=== PATIENT | female | born 1990 | race Caucasian/White ===

== ENCOUNTER 2017-04-22 09:18 | Emergency (ER) | payer OTHER ==
[2017-04-22 09:31] VITALS: RESP 16; O2SAT 100
[2017-04-22] MEDS ORDERED: Oxycodone/Acetaminophen 5/325 mg Tab PO STA (10:33)
--- NOTE | 2017-04-22 10:38 | ED PDOC ---
Upper Extremity Pain/Injury Time Seen by Provider: 04/22/17 10:15 Chief Complaint (Nursing): Trauma Chief Complaint (Provider): Trauma History Per: Patient History/Exam Limitations: no limitations Onset/Duration Of Symptoms: Mins Additional Complaint(s): 27 year old female presents to the emergency department with a complaint of a right knee injury after she fell on ice prior to arrival. Patient states she fell directly on the left knee but then saw her right knee twist. Of note, patient had fell on her right knee years ago with ruptured ligaments that took very long to heal and is now concerned that she might have injured the knee the same way. Denies fever or chills. Past Medical History Reviewed: Historical Data, Nursing Documentation, Vital Signs Vital Signs: Last Vital Signs Temp 97 F L 04/22/17 09:26 Pulse 73 04/22/17 09:26 Resp 16 04/22/17 09:26 BP 108/74 04/22/17 09:26 Pulse Ox 100 04/22/17 09:26 - Medical History PMH: No Chronic Diseases - Immunization History Hx Tetanus Toxoid Vaccination: No Hx Influenza Vaccination: No Hx Pneumococcal Vaccination: No - Allergies Allergies/Adverse Reactions: Allergies Allergy/AdvReac Type Severity Reaction Status Date / Time No Known Allergies Allergy Verified 04/22/17 10:32 Review of Systems ROS Statement: Except As Marked, All Systems Reviewed And Found Negative (As per HPI, otherwise negative) Constitutional: Negative for: Fever, Chills Musculoskeletal: Positive for: Other (Right knee pain) Physical Exam - Reviewed Nursing Documentation Reviewed: Yes Vital Signs Reviewed: Yes - Physical Exam Appears: Positive for: No Acute Distress Head Exam: Positive for: NORMAL INSPECTION Skin: Positive for: Normal Color, Warm, Dry Extremity: Positive for: Normal ROM (Unable to fully extend the knee secondary to pain with some edema. ), Tenderness (Anterior knee), Other (+2 DP pulses with sensation intact). Negative for: Deformity (No obvious bony deformity) Neurologic/Psych: Positive for: Alert, Oriented (x3) - ECG O2 Sat by Pulse Oximetry: 100 (RA) Pulse Ox Interpretation: Normal Medical Decision Making Medical Decision Making: Time: 1033 Initial Impression: Right knee pain s/p fall Initial Plan: Urine Preg Percocet 5/325 mg PO Right knee x-ray Reevaluation Scribe Attestation: Documented by Liz Orozco, acting as a scribe for Denisse Alexandre MD. Provider Scribe Attestation: All medical record entries made by the Scribe were at my direction and personally dictated by me. I have reviewed the chart and agree that the record accurately reflects my personal performance of the history, physical exam, medical decision making, and the department course for this patient. I have also personally directed, reviewed, and agree with the discharge instructions and disposition. Disposition - Disposition
--- NOTE | 2017-04-22 10:44 | ED PDOC ---
Lower Extremity Pain/Injury Time Seen by Provider: 04/22/17 10:15 Chief Complaint (Nursing): Trauma Chief Complaint (Provider): Trauma History Per: Patient Onset/Duration Of Symptoms: Hrs Additional Complaint(s): 27 year old female presents to the emergency department with a complaint of a right knee injury after she fell on ice prior to arrival. Patient states she fell directly on the left knee but then saw her right knee twist. Of note, patient had fell on her right knee years ago with ruptured ligaments that took very long to heal and is now concerned that she might have injured the knee the same way. Denies fever or chills. Past Medical History Vital Signs: Last Vital Signs Temp 97 F L 04/22/17 09:26 Pulse 73 04/22/17 09:26 Resp 16 04/22/17 09:26 BP 108/74 04/22/17 09:26 Pulse Ox 100 04/22/17 09:26 - Family History Family History: States: Unknown Family Hx - Immunization History Hx Tetanus Toxoid Vaccination: No Hx Influenza Vaccination: No Hx Pneumococcal Vaccination: No - Home Medications Home Medications: Ambulatory Orders Medication Instructions Recorded oxyCODONE/Acetaminophen [Percocet 1 tab PO Q6 PRN #20 tab 04/22/17 5/325 mg Tab] - Allergies Allergies/Adverse Reactions: Allergies Allergy/AdvReac Type Severity Reaction Status Date / Time No Known Allergies Allergy Verified 04/22/17 10:32 Review of Systems ROS Statement: Except As Marked, All Systems Reviewed And Found Negative (As per HPI, otherwise negative) Constitutional: Negative for: Fever, Chills Musculoskeletal: Positive for: Other (Rigth knee pain) Physical Exam - Reviewed Nursing Documentation Reviewed: Yes Vital Signs Reviewed: Yes - Physical Exam Appears: Positive for: No Acute Distress Head Exam: Positive for: NORMAL INSPECTION Skin: Positive for: Normal Color, Warm, Dry Extremity: Positive for: Normal ROM (Unable to fully extend the knee secondary to pain with some edema), Tenderness (Anterior knee), Other (+2 DP pulses with sensation intact). Negative for: Deformity (No obvious bony deformity noted) Neurologic/Psych: Positive for: Alert, Oriented (x3) - ECG O2 Sat by Pulse Oximetry: 100 (RA) Pulse Ox Interpretation: Normal Medical Decision Making Medical Decision Making: Time: 1033 Initial Impression: Right knee pain s/p fall Initial Plan: Urine Preg Percocet 5/325 mg PO Right knee x-ray Reevaluation Time: 1057 Knee MRI w/o contrast Time: 1230 --knee x-ray FINDINGS: BONES: No acute fracture. JOINTS: Unremarkable. JOINT EFFUSION: None. OTHER FINDINGS: None. IMPRESSION: No demonstrated fracture or dislocation. Accession No. : [id number] Patient Name / ID : GEORGINA STRAUSS / [id number] Exam Date : 04/22/2017 12:23:37 ( Approved ) Study Comment : Sex / Age : F / 27Y Creator : Toy Chung MD Dictator : Toy Chung MD Animal Nutritionist : Property Staff Accountant : Toy Chung MD Approver2 : Report Date : 04/22/2017 15:02:43 My Comment : MRI right knee History: Knee pain. Comparison: None available. Technique: Multi-echo multiplanar sequences were performed through the right knee without the use of intravenous contrast. Findings: Nonvisualization of the anterior cruciate ligament at its expected location in the intercondylar notch suggestive for a complete tear. Associated bone marrow contusion injuries and or subchondral osseous injuries at the articular surface of the mid lateral femoral condyle and posterior lateral proximal tibia at the articular surface. Additional bone marrow contusion injuries at the medial aspect of the medial femoral condyle as well as the posterior medial proximal tibia. Posterior cruciate ligament is preserved. Linear grade 1 intrasubstance degeneration and or intrasubstance partial tearing in the posterior horn of the medial meniscus with adjacent moderate grade strain. Prominent complete tear of the body and posterior horn of the lateral meniscus in a bucket-handle like configuration with the posterior horn fragment flipped and traversing adjacent to the anterior horn of the lateral meniscus in a double delta configuration. An additional portion of the flipped fragment extends into the intercondylar notch. Medial collateral ligament is preserved. Lateral collateral complex structures are preserved. Popliteus tendon is preserved. Quadriceps tendon is preserved. Patellar tendon is preserved. Patellar cartilage is preserved. Femorotibial articular cartilage is preserved. No significant suprapatellar joint effusion. Impression: 1. Prominent complete tear of the body and posterior horn of the lateral meniscus in a bucket-handle like configuration with the posterior horn fragment flipped and traversing adjacent to the anterior horn of the lateral meniscus in a double delta configuration. An additional portion of the flipped fragment extends into the intercondylar notch. 2. Nonvisualization of the anterior cruciate ligament at its expected location in the intercondylar notch suggestive for a complete tear. 3. Associated bone marrow contusion injuries and or subchondral osseous injuries at the articular surface of the mid lateral femoral condyle and posterior lateral proximal tibia at the articular surface. 4. Additional bone marrow contusion injuries at the medial aspect of the medial femoral condyle as well as the posterior medial proximal tibia. 5. Linear grade 1 intrasubstance degeneration and or intrasubstance partial tearing in the posterior horn of the medial meniscus with adjacent moderate grade strain. Time: 1440 --Discussed case with Dr. Hurst. --MRI results reviewed and he recommends knee immobilizer. --Dr. Hurst will see patient tomorrow in the office tomorrow, 04/23/2017. Time: 1441 --Knee Immobilizer --Crutches Routine Time: 1500 --Patient will be discharged home with Rx for Percocet 5/325 mg. Follow up with Dr. Anival Hurst MD. Clinical Impression: Bucket handle tear of lateral meniscus and complete tear of right ACL. Scribe Attestation: Documented by Liz Orozco, acting as a scribe for Denisse Alexandre MD. Provider Scribe Attestation: All medical record entries made by the Scribe were at my direction and personally dictated by me. I have reviewed the chart and agree that the record accurately reflects my personal performance of the history, physical exam, medical decision making, and the department course for this patient. I have also personally directed, reviewed, and agree with the discharge instructions and disposition. Disposition - Clinical Impression Clinical Impression: Bucket handle tear of lateral meniscus, Complete tear of right ACL Counseled Patient/Family Regarding: Studies Performed, Diagnosis, Need For Followup, Rx Given - Disposition Referrals: Anival Hurst MD [Medical Doctor] - Disposition: Routine/Home Disposition Time: 15:00 Condition: STABLE Additional Instructions: FOLLOW-UP WITH DR. HURST OR DR. CARRERA TOMORROW WITHOUT FAIL. [phone] Prescriptions: oxyCODONE/Acetaminophen [Percocet 5/325 mg Tab] 1 tab PO Q6 PRN #20 tab PRN Reason: Pain, Moderate (4-7) Instructions: Anterior Cruciate Ligament Tear, Meniscectomy Forms: [employer] ([employer])
[2017-04-22] MEDS ORDERED: Oxycodone/Acetaminophen 5/325 mg Tab ONE (10:55)
--- NOTE | 2017-04-22 12:32 | RAD ---
PROCEDURE: Right Knee Radiographs. HISTORY: Knee injury COMPARISON: None. FINDINGS: BONES: No acute fracture. JOINTS: Unremarkable. JOINT EFFUSION: None. OTHER FINDINGS: None. IMPRESSION: No demonstrated fracture or dislocation.
[2017-04-22 14:56] VITALS: BP 120/65; PULSE 64; TEMP 99.1
--- NOTE | 2017-04-22 15:04 | MRI ---
MRI right knee History: Knee pain. Comparison: None available. Technique: Multi-echo multiplanar sequences were performed through the right knee without the use of intravenous contrast. Findings: Nonvisualization of the anterior cruciate ligament at its expected location in the intercondylar notch suggestive for a complete tear. Associated bone marrow contusion injuries and or subchondral osseous injuries at the articular surface of the mid lateral femoral condyle and posterior lateral proximal tibia at the articular surface. Additional bone marrow contusion injuries at the medial aspect of the medial femoral condyle as well as the posterior medial proximal tibia. Posterior cruciate ligament is preserved. Linear grade 1 intrasubstance degeneration and or intrasubstance partial tearing in the posterior horn of the medial meniscus with adjacent moderate grade strain. Prominent complete tear of the body and posterior horn of the lateral meniscus in a bucket-handle like configuration with the posterior horn fragment flipped and traversing adjacent to the anterior horn of the lateral meniscus in a double delta configuration. An additional portion of the flipped fragment extends into the intercondylar notch. Medial collateral ligament is preserved. Lateral collateral complex structures are preserved. Popliteus tendon is preserved. Quadriceps tendon is preserved. Patellar tendon is preserved. Patellar cartilage is preserved. Femorotibial articular cartilage is preserved. No significant suprapatellar joint effusion. Impression: 1. Prominent complete tear of the body and posterior horn of the lateral meniscus in a bucket-handle like configuration with the posterior horn fragment flipped and traversing adjacent to the anterior horn of the lateral meniscus in a double delta configuration. An additional portion of the flipped fragment extends into the intercondylar notch. 2. Nonvisualization of the anterior cruciate ligament at its expected location in the intercondylar notch suggestive for a complete tear. 3. Associated bone marrow contusion injuries and or subchondral osseous injuries at the articular surface of the mid lateral femoral condyle and posterior lateral proximal tibia at the articular surface. 4. Additional bone marrow contusion injuries at the medial aspect of the medial femoral condyle as well as the posterior medial proximal tibia. 5. Linear grade 1 intrasubstance degeneration and or intrasubstance partial tearing in the posterior horn of the medial meniscus with adjacent moderate grade strain. These findings were discussed with Dr. Alexandre at 2:45 p.m. on 04/22/2017.
== END 2017-04-22 15:00 | disposition home or self-care (01) ==
LOC: H.ER 09:18
DX: S83.511A Sprain of anterior cruciate ligament of right knee, initial encounter (principal); W19.XXXA Unspecified fall, initial encounter; Y92.89 Other specified places as the place of occurrence of the external cause
CPT/HCPCS: 29530; 73562; 73721; 81025; 99285; L1830